=== PATIENT | female | born 1985 | race Two or more races ===

== ENCOUNTER 2016-06-02 12:56 | Emergency (ER) | payer MEDICAID ==
[~2016-06-02] VITALS: Ht 154.9 cm; Wt 93.4 kg
[2016-06-02 13:00] VITALS: BP 124/70
[2016-06-02] MEDS ORDERED: PREN-153 OR (15:09)
== END 2016-06-02 14:50 | disposition home or self-care (01) ==
LOC: ER 12:59 → LDRP 13:35
PROVIDERS: ADMIT Obstetrics & Gynecology; ATTEND Obstetrics & Gynecology
DX: O36.8130 Decreased fetal movements, third trimester, not applicable or unspecified (principal); O26.893 Other specified pregnancy related conditions, third trimester; N89.8 Other specified noninflammatory disorders of vagina; Z82.49 Family history of ischemic heart disease and other diseases of the circulatory system; Z3A.36 36 weeks gestation of pregnancy
CPT/HCPCS: 59025; 76818; 81002; 99285; G0378